=== PATIENT | female | born 1970 | race African-American/Black ===

== ENCOUNTER 2020-03-16 09:48 | Emergency (ER) | payer OTHER, SELFPAY ==
[2020-03-16 09:59] VITALS: BP 162/81; PULSE 78; RESP 16; TEMP 36.7; O2SAT 100; BMI 44.6
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
[2020-03-16 11:22] VITALS: BP 146/81; PULSE 63; RESP 18; O2SAT 100
== END 2020-03-16 11:37 | disposition home or self-care (01) ==
PROVIDERS: Emergency Provider Emergency Medicine
DX: M79.652 Pain in left thigh (principal); V89.2XXA Person injured in unspecified motor-vehicle accident, traffic, initial encounter
CPT/HCPCS: 73502; 73552; 99283

== ENCOUNTER 2020-06-16 09:33 | Emergency (ER) | payer OTHER, SELFPAY ==
[2020-06-16 09:45] VITALS: BP 158/84; PULSE 77; RESP 18; TEMP 36.3; O2SAT 97; BMI 40.7
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
[2020-06-16 11:26] VITALS: BP 162/92; PULSE 70; RESP 16; O2SAT 100
== END 2020-06-16 11:26 | disposition home or self-care (01) ==
LOC: ED 11:11
PROVIDERS: Emergency Provider Emergency Medicine
DX: M54.6 Pain in thoracic spine (principal); T23.109A Burn of first degree of unspecified hand, unspecified site, initial encounter; V89.2XXA Person injured in unspecified motor-vehicle accident, traffic, initial encounter
CPT/HCPCS: 72072; 99283

== ENCOUNTER 2023-03-12 12:48 | Emergency (ER) | payer OTHER, SELFPAY ==
[2023-03-12 13:00] VITALS: BP 169/99; PULSE 75; RESP 20; TEMP 37; O2SAT 100; BMI 32.8
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
--- NOTE | 2023-03-12 15:20 | DI.RAD.S_ITS ---
PROCEDURE: XR CERVICAL SPINE 2V OR 3V INDICATIONS: nerve pain originating at base of skull TECHNIQUE: 3 view(s) of the cervical spine were acquired. COMPARISON: None. FINDINGS: Bones: No fractures or dislocations to the C7-T1 level. The lateral masses of C1 appear intact on the odontoid view. No suspicious bony lesions. Cervical straightening is present. Multilevel degenerative disc space narrowing and uncovertebral arthropathy changes are present most severe from C4-5 through C6-7. Soft tissues: No prevertebral soft tissue swelling. IMPRESSION: Degenerative midcervical changes as above. Dictated by: Ashanti Rich M.D. on 03/12/2023 at 16:15 Approved by: Ashanti Rich M.D. on 03/12/2023 at 16:16
== END 2023-03-12 16:30 | disposition home or self-care (01) ==
PROVIDERS: Emergency Provider Physician Assistant
DX: M54.81 Occipital neuralgia (principal)
CPT/HCPCS: 72040; 99281; 99283